=== PATIENT | male | born 1985 | race Caucasian/White ===

== ENCOUNTER 2016-10-06 16:51 | Emergency (ER) | payer BC ==
--- NOTE | 2016-10-06 20:06 | ED ORDER SUMMARY ---
..... Patient: DOMINGO GARCIA OrderSheet [facility] VisitID: [id number] [place] [address] 31y, M Registration Date/Time: 10/06/2016 ORDER SHEET Weight: 145.1 kg (stated) Allergies: Penicillins, Prozac, Ceftin GENERAL ORDERS: MEDICATION ORDERS: Depo-Medrol IM 80 mg (NOW) (18:15 10/06/2016 Charleen Beverly) (Ack 18:18 KPage-Kuchan R.N.) (18:35 KPage-Kuchan R.N.) IV FLUIDS: IV NS : initial bolus none -, then 1000 mL/hr for X1 (NOW) (17:27 10/06/2016 Charleen Beverly) (17:50 KPage-Kuchan R.N.) Toradol IV 30 mg (NOW) (17:28 10/06/2016 Charleen Beverly) (17:50 KPage-Kuchan R.N.) ORDER SHEET NOTES: [Electronically signed by Armani Rene Dr. (20:11 10/06/2016)] [Electronically signed by Patricia Roca R.N. (20:10/06/2016)] [Electronically locked/signed by Patricia Roca R.N. (20:10/06/2016)]
--- NOTE | 2016-10-06 20:06 | ED ORDER SUMMARY ---
..... Patient: DOMINGO GARCIA OrderSheet [facility] VisitID: [id number] [place] [address] 31y, M Registration Date/Time: 10/06/2016 ORDER SHEET Weight: 145.1 kg (stated) Allergies: Penicillins, Prozac, Ceftin GENERAL ORDERS: MEDICATION ORDERS: Depo-Medrol IM 80 mg (NOW) (18:15 10/06/2016 Charleen Beverly) (Ack 18:18 KPage-Kuchan R.N.) (18:35 KPage-Kuchan R.N.) IV FLUIDS: IV NS : initial bolus none -, then 1000 mL/hr for X1 (NOW) (17:27 10/06/2016 Charleen Beverly) (17:50 KPage-Kuchan R.N.) Toradol IV 30 mg (NOW) (17:28 10/06/2016 Charleen Beverly) (17:50 KPage-Kuchan R.N.) ORDER SHEET NOTES: [Electronically signed by Armani Rene Dr. (20:11 10/06/2016)] [Electronically signed by Patricia Roca R.N. (20:10/06/2016)] [Electronically locked/signed by Patricia Roca R.N. (20:10/06/2016)]
--- NOTE | 2016-10-06 20:06 | ED CLINICAL REPORT ---
Clinical Report - Physicians/Mid Levels [facility] [address], [place] [address] 10/06/2016 16:54 Patient: DOMINGO GARCIA Time Seen: 17:15; initial patient contact. Arrived- By private vehicle. Historian- patient. HISTORY OF PRESENT ILLNESS Chief Complaint: SORE THROAT. This started yesterday and is still present. It was gradual in onset. Pain described as moderate. The patient has had a sore throat. Recent medical care: The patient was seen recently in a clinic (Dx'd w/ strept throat, pain not controlled at home and dehydrated.). REVIEW OF SYSTEMS The patient has had fever and a headache. No cough, nausea or vomiting. All systems otherwise negative, except as recorded above. PAST HISTORY Negative. Problems: no known problems. Surgeries: No history of previous surgery. Additional Surgeries: no known surgeries. Allergies: Ceftin. Penicillins. Prozac. SOCIAL HISTORY Smoker - current status unknown. No drug use. ADDITIONAL NOTES The nursing notes have been reviewed. PHYSICAL EXAM Vital Signs: 10/06/2016 17:02 BP: 124/69. HR: 99. RR: 26. O2 saturation: 97%. Temp: 102.3 F. Have been reviewed. Blood pressure normal. Heart rate normal. Tachypneic. Febrile. Oxygen saturation normal. Appearance: Alert. No acute distress. Head: Normal external inspection. ENT: Nose normal. Dry mucous membranes present. Moderate generalized pharyngeal erythema with right tonsillar swelling and exudate and left tonsillar swelling and exudate. No trismus present. Neck: Mild right anterior neck and mild left anterior neck lymphadenopathy present. CVS: Normal heart rate and rhythm. Heart sounds normal. Respiratory: No respiratory distress. Breath sounds normal. Skin: Normal skin color. No rash. Neuro: Oriented X 3. PROGRESS AND PROCEDURES Course of Care: 20:23. Improved w/ 30 mg Toradol, 80 mg Depomedrol, and IV bolus x 2 liters. Disposition: Discharged home in good and improved condition. Condition: good. CLINICAL IMPRESSION Acute streptococcal pharyngitis INSTRUCTIONS Do not work today, tomorrow. Follow-up: Follow up with your doctor in about two days. Call for an appointment. Screening today revealed the patient's blood pressure to be in the pre-hypertensive range. The patient should follow up with a primary care provider for blood pressure management. (Electronically signed by Armani Rene Dr. 10/06/2016 20:11)
--- NOTE | 2016-10-06 20:06 | ED CLINICAL REPORT ---
Clinical Report - Physicians/Mid Levels [facility] [address], [place] [address] 10/06/2016 16:54 Patient: DOMINGO GARCIA Time Seen: 17:15; initial patient contact. Arrived- By private vehicle. Historian- patient. HISTORY OF PRESENT ILLNESS Chief Complaint: SORE THROAT. This started yesterday and is still present. It was gradual in onset. Pain described as moderate. The patient has had a sore throat. Recent medical care: The patient was seen recently in a clinic (Dx'd w/ strept throat, pain not controlled at home and dehydrated.). REVIEW OF SYSTEMS The patient has had fever and a headache. No cough, nausea or vomiting. All systems otherwise negative, except as recorded above. PAST HISTORY Negative. Problems: no known problems. Surgeries: No history of previous surgery. Additional Surgeries: no known surgeries. Allergies: Ceftin. Penicillins. Prozac. SOCIAL HISTORY Smoker - current status unknown. No drug use. ADDITIONAL NOTES The nursing notes have been reviewed. PHYSICAL EXAM Vital Signs: 10/06/2016 17:02 BP: 124/69. HR: 99. RR: 26. O2 saturation: 97%. Temp: 102.3 F. Have been reviewed. Blood pressure normal. Heart rate normal. Tachypneic. Febrile. Oxygen saturation normal. Appearance: Alert. No acute distress. Head: Normal external inspection. ENT: Nose normal. Dry mucous membranes present. Moderate generalized pharyngeal erythema with right tonsillar swelling and exudate and left tonsillar swelling and exudate. No trismus present. Neck: Mild right anterior neck and mild left anterior neck lymphadenopathy present. CVS: Normal heart rate and rhythm. Heart sounds normal. Respiratory: No respiratory distress. Breath sounds normal. Skin: Normal skin color. No rash. Neuro: Oriented X 3. PROGRESS AND PROCEDURES Course of Care: 20:23. Improved w/ 30 mg Toradol, 80 mg Depomedrol, and IV bolus x 2 liters. Disposition: Discharged home in good and improved condition. Condition: good. CLINICAL IMPRESSION Acute streptococcal pharyngitis INSTRUCTIONS Do not work today, tomorrow. Follow-up: Follow up with your doctor in about two days. Call for an appointment. Screening today revealed the patient's blood pressure to be in the pre-hypertensive range. The patient should follow up with a primary care provider for blood pressure management. (Electronically signed by Armani Rene Dr. 10/06/2016 20:11)
--- NOTE | 2016-10-06 20:06 | ED NURSING NOTES ---
Clinical Report - Nurses [facility] [address] [place] [address] 10/06/2016 16:54 Patient: DOMINGO GARCIA TRIAGE Triage time 17:Oct 06 2016. Acuity: LEVEL 3. Chief Complaint: COUGH, FEVER and SORE THROAT and BACK PAIN (pt c/o sore throat that began yesterday, hx of "strep, lots of times"). Alert. No acute distress. (generally ill appearing). SEPSIS SCREEN: Sepsis Screen: positive. Infection suspected/documented. Temperature greater than 38.3 degrees C (101 degrees F), heart rate greater than 90 and respiratory rate greater than 20. Physician notified. --17:17 Allie Nicole R.N. 17:02 10/06/16. BP: 124/69. HR: 99. RR: 26. O2 saturation: 97%. Temp: 102.3 F. Pain level now 9/10. --17:17 Allie Nicole R.N. Weight: 145.1 kg stated. Height/Length: 72 inches Per Patient. BMI: 43.4. --17:17 Allie Nicole R.N. Medications Zithromax Z-Jeronimo Oral. --20:22 Marcelino Alvarado. Vicodin Oral. --20:22 María Alvarado.NEdmundo Medication/allergy information source: the patient and patient's spouse. --17:17 Allie Nicole R.N. Allergies Penicillins. --17:12 Allie Nicole R.N. Prozac. --17:12 Allie Nicole R.N. Ceftin. --17:13 Allie Nicole R.N. History Arrived by private vehicle. Historian: patient and family. Accompanied by mother. This started last night. ( [facility] with + strep, placed on zpak, vicodin and methocarbamol, pt reports pain meds aren't working - last vicodin at 1600 today). He has had chills, fatigue and a headache. Reports muscle aches. ( c/o many areas of pain, ears, eyes, throat and low back). 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 PAST MEDICAL HX: Immunizations: up-to-date. SOCIAL HX: Smoker- current status unknown. No alcohol use or drug use. No infectious disease exposure. ABUSE ASSESSMENT: No report of abuse. SELF HARM ASSESSMENT: A self harm assessment was performed. The patient answered "no" to the question "Have you recently felt down, depressed, or hopeless?", "Have you noticed less interest or pleasure in doing things?", "Do you have thoughts of harming or killing yourself?", "Are you here because you tried to hurt yourself?", "Have you ever tried to hurt yourself before today?", "Have you recently had thoughts about harming or killing others?" and "Do you have any dangerous items in your possession?". FALL RISK ASSESSMENT: Fall risk assessment completed. No fall risk identified. NUTRITIONAL RISK ASSESSMENT: The nutritional risk assessment revealed no deficiencies. FUNCTIONAL ASSESSMENT: Functional assessment: no impairments noted. LEARNING NEEDS ASSESSMENT: The learning needs assessment revealed no barriers. SKIN INTEGRITY ASSESSMENT: Skin integrity risk assessment completed. No skin integrity risk identified. --17:17 Allie Nicole R.N. PROBLEMS: no known problems. ADDITIONAL SURGERIES: no known surgeries. Interventions ID band on patient. Protocol initiated. --17:17 Allie Nicole R.N. PHYSICAL ASSESSMENT GENERAL / NEURO / PSYCH: Alert. Oriented X 4. Appears in no acute distress. HEENT: Pupils equal, round and reactive to light. RESPIRATORY: The patient can speak in full sentences. ( pt speaks full sentences, however voice is quiet, clears oral secretions,). SKIN: Skin is warm and dry. --17:19 Allie Nicole R.N. NURSING PROGRESS NOTES 17:36 10/06/2016 Site #1 started via IV in the right antecubital space with an 20g angiocath; one attempt. Blood drawn: rainbow set. Labeled in the presence of the patient and sent to the lab. Saline lock flushed with 10 mL saline. --17:50 Allie Nicole R.N. 17:38 10/06/2016 Started bag #1 1000 mL IV Fluids IV NS (Saline); at 1000 mL/hr via site #1. Allergies verified and confirmed 5 rights. IV patency established. IV site checked: no pain, redness, or swelling. IV flushed thoroughly pre- and post-medication administration. --17:50 Allie Nicole R.N. 17:40 10/06/2016 Toradol IVP 30 mg given. via site #1. Allergies verified and confirmed 5 rights. IV patency established. IV site checked: no pain, redness, or swelling. IV flushed thoroughly pre- and post-medication administration. IVP given by RN. --17:50 Allie Nicole R.N. 18:33 10/06/16. BP: 125/67. HR: 88. O2 saturation: 98%. Temp: 99.5 F. Pain level now 4/10. --18:35 Allie Nicloe R.N. Head of bed elevated. Reassurance given. Reassessment after medication administered. He is calm and resting quietly. Overall patient status- he states feels better. SKIN: Skin is warm. Call light placed in reach. Side rails up x 2. Bed placed in lowest position. Brakes of bed on. --18:35 Allie Nicole R.N. 18:30 10/06/2016 Depo-Medrol IM 80 mg given. Given in the right gluteus keith. Allergies verified and confirmed 5 rights. --18:35 Allie Nicole R.N. 18:31 10/06/2016 Toradol IVP Response: pain is improving. Symptoms have improved the patient feels better. --18:36 Allie Nicole R.N. ( report received from felicia pt resting in bed). --19:05 Guillermo Alvarado Care transferred and report given (Patricia CALDWELL). --19:07 Allie Nicole R.N. 20:06 10/06/2016 IV Fluids IV NS Discontinued: bag #2 completed upon discharge. Total amount infused: 1000 mL. IV patency established. IV site checked: no pain, redness, or swelling. IV flushed thoroughly. --20:06 Guillermo Alvarado DISPOSITION / DISCHARGE 20:21 10/06/2016 Site #1 removed upon discharge. Catheter intact. Manual pressure and bandage applied. --20:21 Kay Villalobos R.N. Condition at departure: stable. No learning barriers present. Discharge instructions provided and reviewed with the patient and spouse. Patient and spouse verbalized understanding. Written instructions provided in Albanian. The patient was discharged home and accompanied by spouse. He left the Emergency Department ambulatory and via private vehicle. Spouse driving. --20:21 Kay Villalobos R.N. 20:20 10/06/16. BP: 117/63. HR: 85. RR: 15. O2 saturation: 96% on room air. Temp: deferred. Pain level now: 01/18. --20:21 Kay Villalobos R.N. Locked/Released at 10/06/2016 20:23 by Guillermo Alvarado
--- NOTE | 2016-10-06 20:23 | ED DISCHARGE INSTRUCTIONS ---
Patient: DOMINGO GARCIA General Instructions [facility] VisitID: [id number] [place] [address] 31y, M Registration Date/Time: 10/06/2016 Acute streptococcal pharyngitis INSTRUCTIONS Do not work today, tomorrow. Follow-up: Follow up with your doctor in about two days. Call for an appointment. Screening today revealed the patient's blood pressure to be in the pre-hypertensive range. The patient should follow up with a primary care provider for blood pressure management. ADDITIONAL INFORMATION Pharyngitis: Strep [Confirmed] Your test for strep throat was positive. Strep throat is a contagious illness. It is spread by coughing, kissing or by touching others after touching your mouth or nose. Symptoms include throat pain which is worse with swallowing, aching all over, headache and fever. You will be treated with an antibiotic which should make you start to feel better within 1-2 days. Home Care: Rest at home and drink plenty of fluids to avoid dehydration. No school or work for the first two days on antibiotics. You will not be contagious after this time and if you are feeling better, you can return to school or work. Take your antibiotics for a full 10 days, even if you feel better after the first few days of treatment. This is very important to prevent heart or kidney disease that can result as a complication of untreated strep throat infection. Children: Use acetaminophen (Tylenol) for fever, fussiness or discomfort. In infants over six months of age, you may use ibuprofen (Children's Motrin) instead of Tylenol. [NOTE: If your child has chronic liver or kidney disease or ever had a stomach ulcer or GI bleeding, talk with your doctor before using these medicines.] (Aspirin should never be used in anyone under 18 years of age who is ill with a fever. It may cause severe liver damage.)Adults: You may use acetaminophen (Tylenol) or ibuprofen (Motrin, Advil) to control pain or fever, unless another medicine was prescribed for this. [NOTE: If you have chronic liver or kidney disease or ever had a stomach ulcer or GI bleeding, talk with your doctor before using these medicines.] Throat lozenges or sprays (Chloraseptic and others) will reduce pain. Gargling with warm salt water will also reduce throat pain. Dissolve 1/2 teaspoon of salt in 1 glass of warm water. This is especially useful just before meals. Follow Up with your doctor or as directed by our staff if you are not improving over the next week. Get Prompt Medical Attention if any of the following occur: Fever of 100.4F (38C) oral or higher, not better with fever medication New or worsening ear pain, sinus pain or headache Painful lumps in the back of your neck Unable to swallow liquids or open your mouth wide due to throat pain Trouble breathing or noisy breathing Muffled voice New rash You have been given the following additional information: Pharyngitis, Strep (Confirmed) Do not work today, tomorrow. (Electronically signed by Armani Rene Dr. 10/06/2016 20:11)
--- NOTE | 2016-10-06 20:23 | ED MAR SUMMARY ---
..... Medication Administration Record [facility] [address] [place] [address] Patient: DOMINGO GARCIA Visit ID: [id number] 31y, M Weight: 145.1 kg Height/Length: 72 in BMI: 43.4 ALLERGIES: Ceftin, Prozac, Penicillins Start 17:38 10/06/2016 Allie Nicole R.N., Stop 20:06 10/06/2016 Guillermo Alvarado Medication Administered: IV NS (SALINE), Dose: IV Fluids, Rate: 1000 mL/hr, Dispensed: 1000 mL bag, Site: #1 right AC. Medication Ordered: IV NS : initial bolus none -, then 1000 mL/hr for X1 (NOW). Given 17:40 10/06/2016 Allie Nicole R.N. Medication Administered: TORADOL [IVP], Dose: 30 mg IVP, Site: #1 right AC. Medication Ordered: Toradol IV 30 mg (NOW). Given 18:30 10/06/2016 Allie Nicole R.N. Medication Administered: DEPO-MEDROL [IM], Dose: 80 mg IM. Medication Ordered: Depo-Medrol IM 80 mg (NOW).
--- NOTE | 2016-10-06 20:23 | ED MED RECONCILIATION SUMMARY ---
Patient: DOMINGO GARCIA Medication Reconciliation Report [facility] VisitID: [id number] [address] [place] [address] 31y, M Registration Date/Time: 10/06/2016 Weight: 145.1 kg Height/Length: 72 in. BMI: 43.4 ALLERGIES: Ceftin, Penicillins, Prozac The patient's Home Medications are listed below: THE FOLLOWING MEDICATIONS NEED TO BE RECONCILED: Vicodin Oral Zithromax Z-Jeronimo Oral The source(s) of the original Home Medication information: patient patient's spouse The following Medications were given to the patient in the Emergency Department: IV NS IV Fluids bolus 0, then 1000 mL/hr, administered: 10/06/2016 5:38:00 PM Toradol [IVP] IVP 30 mg, administered: 10/06/2016 5:40:00 PM Depo-Medrol [IM] IM 80 mg, administered: 10/06/2016 6:30:00 PM The following Medications were prescribed to the patient: None.
--- NOTE | 2016-10-06 20:23 | ED MED RECONCILIATION SUMMARY ---
Patient: DOMINGO GARCIA Medication Reconciliation Report [facility] VisitID: [id number] [address] [place] [address] 31y, M Registration Date/Time: 10/06/2016 Weight: 145.1 kg Height/Length: 72 in. BMI: 43.4 ALLERGIES: Ceftin, Penicillins, Prozac The patient's Home Medications are listed below: THE FOLLOWING MEDICATIONS NEED TO BE RECONCILED: Vicodin Oral Zithromax Z-Jeronimo Oral The source(s) of the original Home Medication information: patient patient's spouse The following Medications were given to the patient in the Emergency Department: IV NS IV Fluids bolus 0, then 1000 mL/hr, administered: 10/06/2016 5:38:00 PM Toradol [IVP] IVP 30 mg, administered: 10/06/2016 5:40:00 PM Depo-Medrol [IM] IM 80 mg, administered: 10/06/2016 6:30:00 PM The following Medications were prescribed to the patient: None.
--- NOTE | 2016-10-06 20:23 | ED MAR SUMMARY ---
..... Medication Administration Record [facility] [address] [place] [address] Patient: DOMINGO GARCIA Visit ID: [id number] 31y, M Weight: 145.1 kg Height/Length: 72 in BMI: 43.4 ALLERGIES: Ceftin, Prozac, Penicillins Start 17:38 10/06/2016 Allie Nicole R.N., Stop 20:06 10/06/2016 Guillermo Alvarado Medication Administered: IV NS (SALINE), Dose: IV Fluids, Rate: 1000 mL/hr, Dispensed: 1000 mL bag, Site: #1 right AC. Medication Ordered: IV NS : initial bolus none -, then 1000 mL/hr for X1 (NOW). Given 17:40 10/06/2016 Allie Nicole R.N. Medication Administered: TORADOL [IVP], Dose: 30 mg IVP, Site: #1 right AC. Medication Ordered: Toradol IV 30 mg (NOW). Given 18:30 10/06/2016 Allie Nicole R.N. Medication Administered: DEPO-MEDROL [IM], Dose: 80 mg IM. Medication Ordered: Depo-Medrol IM 80 mg (NOW).
== END 2016-10-06 20:20 | disposition home or self-care (01) ==
LOC: ED SRH 16:51
DX: J02.0 Streptococcal pharyngitis (principal); Z88.1 Allergy status to other antibiotic agents; Z88.0 Allergy status to penicillin; Z88.8 Allergy status to other drugs, medicaments and biological substances; F17.200 Nicotine dependence, unspecified, uncomplicated

== ENCOUNTER 2016-10-07 09:05 | Emergency (ER) | payer BC ==
--- NOTE | 2016-10-07 11:23 | DIAGNOSTIC IMAGING REPORT ---
PROCEDURE: CT SOFT TISSUE NECK WITH CONT INDICATION: PAIN, INFECTION TECHNIQUE: 150 ml of Isovue 300 IV contrast was administered. Axial thin-slice CT images were acquired through the neck with coronal and sagittal reformations. If needed, angled axial CT images avoiding dental hardware were acquired. COMPARISON: None. FINDINGS: Enlarged and moderately edematous adenoid pad, palatine tonsils and uvula. The airway between the tonsils is patent and remains midline. No retropharyngeal effusion. No peritonsillar abscess or phlegmon. Parapharyngeal fat planes are normally preserved. Moderate bilateral cervical adenopathy extending caudally to the supraclavicular region. Mild superior mediastinal adenopathy. No soft tissue mass. The glandular structures appear symmetric with normal attenuation and enhancement. The vasculature is patent and normal caliber bilaterally. The visible portions of the sinuses and mastoids are normally aerated. The visible base of the brain is normal. Osseous structures are intact without periostitis or lytic lesion. No significant dental disease. The airway is patent. The lung apices are normally aerated. No suspicious mediastinal mass. IMPRESSION: 1. Findings suggestive of acute tonsillitis without peritonsillar abscess. 2. Reactive bilateral cervical and minimal mediastinal adenopathy. 3. Discussed with Dr. Keys.
--- NOTE | 2016-10-07 13:12 | ED NURSING NOTES ---
Clinical Report - Nurses [facility] [address] [place] [address] 10/07/2016 9:06 Patient: DOMINGO GARCIA TRIAGE Triage time 09:09. Acuity: LEVEL 3. Chief Complaint: SORE THROAT. --09:15 Cheryl Orozco R.N. 09:09 10/07/16. BP: 114/57. HR: 101. RR: 20. O2 saturation: 97%. Temp: 100.8 F. Pain level now: 04/20. --09:15 Cheryl Orozco R.N. Weight: 163.2 kg stated. Height/Length: 72 inches Per Patient. BMI: 48.8. --09:13 Cheryl Orozco R.N. Medications Azithromycin Oral. --09:10 Cheryl Orozco R.N. Muscle Relaxant. --09:10 Cheryl Orozco R.N. Levoxyl 250 mcg daily. --09:11 Cheryl Orozco R.N. Citalopram 20 mg daily. --09:11 Cheryl Orozco R.N. Nexium. --09:11 Cheryl Orozco R.N. Medication/allergy information source: the patient's spouse. --09:15 Cheryl Orozco R.N. Allergies Penicillins. Prozac. --09:10 Cheryl Orozco R.N. History Arrived by private vehicle. Historian: patient and family. Accompanied by family. Onset. (3 days ago). ( Unable to swallow secretions, positive strep yesterday morning at [facility]. Started Zpak yesterday, second dose today. Today unable to swallow bloody secretions. ALSO seen here yesterday.). He has had fever. SOCIAL HX: No alcohol use or drug use. No infectious disease exposure. --09:15 Cheryl Orozco R.N. 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 --09:33 Cheryl Orozco R.N. PROBLEMS: Strep. Depression. Hypothyroidism. --09:12 Cheryl Orozco R.N. Interventions ID band on patient. To treatment room. --09:15 Cheryl Orozco R.N. PHYSICAL ASSESSMENT Ambulatory to room. GENERAL / NEURO / PSYCH: Alert. Oriented X 4. Appears in pain. HEENT: Pharyngeal erythema. Tonsillar exudate present. Trouble handling secretions. Muffled voice. RESPIRATORY: Respirations not labored. SKIN: Skin is diaphoretic. --09:21 Cheryl Orozco R.N. NURSING PROGRESS NOTES Head of bed elevated. Reassurance given. Call light placed in reach. Bed placed in lowest position. Patient ready for evaluation- chart flagged. Patient waiting for evaluation. --09:21 Cheryl Orozco R.N. 09:47 10/07/2016 Started bag #1 1000 mL IV Fluids IV NS (Saline); bolus of 1000 mL wide open then at 1000 mL/hr over 1 hour(s) via site #1 --09:52 Cheryl Orozco R.N. 09:52 10/07/2016 Site #1 started via IV in the right antecubital space with an 20g angiocath; one attempt. Saline lock flushed with 10 mL saline. --09:52 Cheryl Orozco R.N. 09:52 10/07/2016 Started 2 gm of Rocephin (CefTRIAXone Sodium) IVPB in bag #1 50 mL; at 100 mL/hr over 30 minute(s) via site #1 --10:22 Cheryl Orozco R.N. 09:53 10/07/2016 Decadron IVP 20 mg given over 3 minute(s) via site #1. Allergies verified and confirmed 5 rights. IV patency established. IV site checked: no pain, redness, or swelling. IV flushed thoroughly pre- and post-medication administration. --09:53 Cheryl Orozco R.N. 09:53 10/07/2016 Toradol IVP 30 mg given over 2 minute(s) via site #1. --09:53 Cheryl Orozco R.N. 09:54 10/07/2016 Dilaudid (HYDROmorphone HCl PF) IVP 1 mg given over 2 minute(s) via site #1. Allergies verified, confirmed 5 rights and sedative warning given to the patient and patient's family. IV patency established. IV site checked: no pain, redness, or swelling. IV flushed thoroughly pre- and post-medication administration. --09:55 Cheryl Orozco R.N. 10:23 10/07/2016 Rocephin IVPB Discontinued: bag #1 infused. Total amount infused: 50 mL. --10:23 Cheryl Orozco R.N. ( Called to room by apartment maintenance technician for low BP (60s/40s). Pt. BP retaken, now 102/64, which is baseline for this visit. Pt. diaphoretic, but states not dizzy.). --10:49 Cheryl Orozco R.N. ( Out to CT, will come back to room 4). --10:50 Cheryl Orozco R.N. 11:07 10/07/16. ( Place patient in gown). --11:07 Baldev Mora R.N. 12:06 10/07/16. BP: 111/46. HR: 63. O2 saturation: 97%. --12:06 Cheryl Orozco R.N. 11:15 10/07/16. BP: 105/51. HR: 64. RR: 18. O2 saturation: 96%. --12:07 Cheryl Orozco R.N. late entry - 11:15. --12:07 Cheryl Orozco R.N. ( patient states he is feeling better. Declined po fluids when offered. awaiting ENT). --12:45 Cheryl Orozco R.N. 09:59 10/07/2016 IV Fluids IV NS Discontinued: bag #1 infused. Total amount infused: 1000 mL. IV patency established. IV site checked: no pain, redness, or swelling. IV flushed thoroughly. --13:24 Cheryl Orozco R.N. DISPOSITION / DISCHARGE Condition at departure: stable. Discharge instructions provided and reviewed with the patient and spouse. Reviewed warnings. Reviewed medication(s) side effects information. Prescription(s) given to the patient. Reviewed referral to an ear, nose, and throat specialist (legal counsel). Patient and spouse verbalized understanding. Written instructions provided in Khmer. The patient was discharged home and accompanied by spouse. He left the Emergency Department ambulatory and via private vehicle. Spouse driving. --13:23 Cheryl Orozco R.N. 13:22 10/07/16. BP: 101/55. HR: 62. RR: 18. O2 saturation: 97%. Temp: 98.1 F. Pain level now: 12/19. --13:23 Cheryl Orozco R.N. 13:23 10/07/2016 Site #1 removed upon discharge. Pressure dressing applied. --13:23 Cheryl Orozco R.N. Departure time: :23. --13:23 Cheryl Orozco R.N. Locked/Released at 10/07/2016 13:24 by Cheryl Orozco R.N.
--- NOTE | 2016-10-07 13:12 | ED ORDER SUMMARY ---
..... Patient: DOMINGO GARCIA OrderSheet [facility] VisitID: [id number] [address] [place] [address] 31y, M Registration Date/Time: 10/07/2016 ORDER SHEET Weight: 163.2 kg (stated) Allergies: Penicillins, Prozac GENERAL ORDERS: CT Soft Tissue Neck w Cont (No) (N/A) Urgent (10:32 10/07/2016 Pankaj SCHNEIDER) (Ack 10:33 LNations ER Tech1) MEDICATION ORDERS: IV FLUIDS: IV NS : initial bolus 1000 mL (1000 mL/hr), then none - (NOW) (09:35 10/07/2016 Pankaj SCHNEIDER) (Ack 9:37 SStone R.N.) (9:52 SStone R.N.) Dilaudid IV 1 mg (HIGH ALERT MEDICATION, NOW) (09:35 10/07/2016 Pankaj SCHNEIDER) (Ack 9:37 SStone R.N.) (9:55 SStone R.N.) Toradol IV 30 mg (NOW) (09:35 10/07/2016 Pankaj SCHNEIDER) (Ack 9:37 SStone R.N.) (9:53 SStone R.N.) Decadron IV 20 mg (NOW) (09:36 10/07/2016 Pankaj SCHNEIDER) (Ack 9:37 SStone R.N.) (9:53 SStone R.N.) Rocephin IV 2 gm/50mL (NOW) (09:36 10/07/2016 Pankaj SCHNEIDER) (Ack 9:37 SStone R.N.) (10:22 SStone R.N.) ORDER SHEET NOTES: [Electronically signed by Cheryl Orozco R.N. (13:24 10/07/2016)] [Electronically signed by Nargis Keys MD (19:21 10/09/2016)] [Electronically locked/signed by Chreyl Orozco R.N. (13:24 10/07/2016)]
--- NOTE | 2016-10-07 13:12 | ED CLINICAL REPORT ---
Clinical Report - Physicians/Mid Levels [facility] [address] [place] [address] 10/07/2016 9:06 Patient: DOMINGO GARCIA Time Seen: 09:35. Arrived- By private vehicle. Historian- patient. HISTORY OF PRESENT ILLNESS Chief Complaint: SORE THROAT. This started several days ago and is still present and worsening. Pain described as moderate. The patient has had a sore throat. No mouth sores, nasal discharge or congestion, ear pain or toothache. No swollen jaw or face, jaw pain or facial pain. (Pt states he has had strep pharyngitis multiple times as an adult (3-4 x/year throughout adulthood), but has never had a case this bad. states she is concerned, because pt has obstructive sleep apnea already, and when he does briefly fall asleep, he snores and drools, even sitting up, since being ill with strep. Pt states he just started Zithromax yesterday for this. He states the steroids he was given in the ED did seem to help, but he was not given any for at home. Pt states the Vicodin, even 3 tabs at a time, was completely unhelpful for his pain. He states he would just like something to help him sleep, so he can wake up feeling better.). Similar symptoms previously: Many times, milder. Recent medical care: The patient was seen recently at this facility in the emergency department. REVIEW OF SYSTEMS The patient has had low grade fever. No eye discomfort, cough, difficulty breathing, chest pain or nausea. No diarrhea, abdominal pain, difficulty with urination, headache or fainting episodes. No joint pain, skin rash, enlarged lymph nodes or vomiting. All systems otherwise negative, except as recorded above. PAST HISTORY Problems: Strep. Depression. Hypothyroidism. Additional Surgeries: no known surgeries. Medications: Nexium. Citalopram 20 mg daily. Levoxyl 250 mcg daily. Muscle Relaxant. Azithromycin Oral. Allergies: Penicillins. Prozac. SOCIAL HISTORY No alcohol use or drug use. ADDITIONAL NOTES The nursing notes have been reviewed. PHYSICAL EXAM Vital Signs: 10/07/2016 09:09 BP: 114/57. HR: 101. RR: 20. O2 saturation: 97%. Temp: 100.8 F. Pain level now: 04/20. Have been reviewed. Appearance: Alert. No acute distress. (Pt appears moderately uncomfortable.). Head: Normal external inspection. Eyes: Pupils equal, round and reactive to light. Conjunctivae and eyelids normal. ENT: Ears normal. Nose normal. Moderate generalized pharyngeal erythema with right tonsillar swelling and exudate and left tonsillar swelling and exudate. No pharyngeal vesicles or ulcerations. No right tonsillar abscess or left tonsillar abscess. Lips normal. Gums normal. No trismus present. Uvula midline. (Uvula is mildly enlarged.). Neck: Trachea midline. Neck supple. CVS: Normal heart rate and rhythm. Heart sounds normal. Pulses normal. Respiratory: No respiratory distress. Breath sounds normal. Abdomen: Soft. No organomegaly. Skin: Normal skin color. No rash. Normal skin turgor. Extremities: Extremities exhibit normal ROM. Extremities nontender. Neuro: (Grossly oriented and intact.). LABS, X-RAYS, AND EKG CT Neck - Soft Tissue: Vessels normal. Normal epiglottis, sub-glottic space and pre-vertebral space. No mass, soft tissue air or foreign body. No fracture, subluxation or bony lesion. (Tonsillitis, no abscess.). Neck CT (soft tissue) performed with contrast. The study was independently viewed by me, interpreted by the radiologist and contemporaneously by me and discussed with the radiologist. Prior studies were not available for comparison. Pulse Oximetry: 10/07/2016 09:09 O2 saturation: 97%. (FIO2 - room air). Interpretation: normal. PROGRESS AND PROCEDURES Course of Care: PT was treated symptomatically with IV fluids, Toradol, Decadron, and Dilaudid, and was given a dose of Rocephin in the ED. CT neck showed tonsillitis, but no other concerning findings. D/w pt the follow-up plan with ENT. Pt reported feeling better, and I did d/w him that I feel he likely just needs more time on abx. Pt understands he may return to the ED at any time, should his sx worsen. Discussed case with on-call health care provider, (Michael/ENT). Reviewed test results and need for additional work-up. Agreed upon treatment plan. Health care provider will see patient in office. Patient and spouse counseled in person regarding the patient's stable condition, test results, diagnosis and need for follow-up. Concerns were addressed. Old medical records reviewed. Disposition: Discharged. Condition: stable and improved. CLINICAL IMPRESSION Acute streptococcal pharyngitis INSTRUCTIONS Drink plenty of fluids. (Your CT scan looks good--you have tonsillitis, but no abscess or spread of infection to anywhere else. Your case has been discussed with Dr. Rodriguez (ENT specialist), who states that he or one of his colleagues will be happy to see you within the week. Please call their office to set up an appointment. Please continue your antibiotics, as directed, until they are gone. Please also take the steroids prescribed to help with the pain and inflammation. Take the pain medication to help with the pain, as well (do not take with Vicodin). If you experience difficulty breathing that seems to be worsening, please return to the emergency dept without delay.). Warnings: Further evaluation is necessary. It is very important to follow up with a physician. SEDATIVE MEDICATION: You were given sedative medication during your visit. Do not drive or operate dangerous machinery for 8 hours. GENERAL WARNINGS: Return or contact your physician immediately if your condition worsens or changes unexpectedly, if not improving as expected, or if other problems arise. Your Current Medications: CONTINUE TAKING THE FOLLOWING MEDICATIONS: Azithromycin Oral. Citalopram 20 mg daily*. Levoxyl 250 mcg daily*. Muscle Relaxant*. Nexium*. Prescription Medications: Oxycodone 15 mg tablets: take 1 orally every 6 hours as needed for pain. Dispense fifteen (15). No refill. Prednisone 20 mg tablets: take 3 tablets every day for 2 days ; then take 2 tablets every day for 2 days ; then take 1 tablet every day for 2 days. Dispense sufficient quantity. No refills. Understanding of the discharge instructions verbalized by patient and family. Follow-up with: Art Rodriguez MD, ENT, , [facility] [address], [id number]; Art Mae MD, ENT, , [facility], [address] [place] [id number]; Miles Royal MD, ENT, , [facility], [address] [place] [address], [place], [address] Follow up. Call for the next available appointment. Reason for referral: Follow up ER visit within 1 week. (Electronically signed by Nargis Keys MD 10/09/2016 19:21)
--- NOTE | 2016-10-07 13:12 | ED ORDER SUMMARY ---
..... Patient: DOMINGO GARCIA OrderSheet [facility] VisitID: [id number] [address] [place] [address] 31y, M Registration Date/Time: 10/07/2016 ORDER SHEET Weight: 163.2 kg (stated) Allergies: Penicillins, Prozac GENERAL ORDERS: CT Soft Tissue Neck w Cont (No) (N/A) Urgent (10:32 10/07/2016 Pankaj SCHNEIDER) (Ack 10:33 LNations ER Tech1) MEDICATION ORDERS: IV FLUIDS: IV NS : initial bolus 1000 mL (1000 mL/hr), then none - (NOW) (09:35 10/07/2016 Pankaj SCHNEIDER) (Ack 9:37 SStone R.N.) (9:52 SStone R.N.) Dilaudid IV 1 mg (HIGH ALERT MEDICATION, NOW) (09:35 10/07/2016 Pankaj SCHNEIDER) (Ack 9:37 SStone R.N.) (9:55 SStone R.N.) Toradol IV 30 mg (NOW) (09:35 10/07/2016 Pankaj SCHNEIDER) (Ack 9:37 SStone R.N.) (9:53 SStone R.N.) Decadron IV 20 mg (NOW) (09:36 10/07/2016 Pankaj SCHNEIDER) (Ack 9:37 SStone R.N.) (9:53 SStone R.N.) Rocephin IV 2 gm/50mL (NOW) (09:36 10/07/2016 Pankaj SCHNEIDER) (Ack 9:37 SStone R.N.) (10:22 SStone R.N.) ORDER SHEET NOTES: [Electronically signed by Cheryl Orozco R.N. (13:24 10/07/2016)] [Electronically signed by Nargis Keys MD (19:21 10/09/2016)] [Electronically locked/signed by Cheryl Orozco R.N. (13:24 10/07/2016)]
--- NOTE | 2016-10-07 13:12 | ED NURSING NOTES ---
Clinical Report - Nurses [facility] [address] [place] [address] 10/07/2016 9:06 Patient: DOMINGO GARCIA TRIAGE Triage time 09:09. Acuity: LEVEL 3. Chief Complaint: SORE THROAT. --09:15 Cheryl Orozco R.N. 09:09 10/07/16. BP: 114/57. HR: 101. RR: 20. O2 saturation: 97%. Temp: 100.8 F. Pain level now: 04/20. --09:15 Cheryl Orozco R.N. Weight: 163.2 kg stated. Height/Length: 72 inches Per Patient. BMI: 48.8. --09:13 Cheryl Orozco R.N. Medications Azithromycin Oral. --09:10 Cheryl Orozco R.N. Muscle Relaxant. --09:10 Cheryl Orozco R.N. Levoxyl 250 mcg daily. --09:11 Cheryl Orozco R.N. Citalopram 20 mg daily. --09:11 Cheryl Orozco R.N. Nexium. --09:11 Cheryl Orozco R.N. Medication/allergy information source: the patient's spouse. --09:15 Cheryl Orozco R.N. Allergies Penicillins. Prozac. --09:10 Cheryl Orozco R.N. History Arrived by private vehicle. Historian: patient and family. Accompanied by family. Onset. (3 days ago). ( Unable to swallow secretions, positive strep yesterday morning at [facility]. Started Zpak yesterday, second dose today. Today unable to swallow bloody secretions. ALSO seen here yesterday.). He has had fever. SOCIAL HX: No alcohol use or drug use. No infectious disease exposure. --09:15 Cheryl Orozco R.N. 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 --09:33 Cheryl Orozco R.N. PROBLEMS: Strep. Depression. Hypothyroidism. --09:12 Cheryl Orozco R.N. Interventions ID band on patient. To treatment room. --09:15 Cheryl Orozco R.N. PHYSICAL ASSESSMENT Ambulatory to room. GENERAL / NEURO / PSYCH: Alert. Oriented X 4. Appears in pain. HEENT: Pharyngeal erythema. Tonsillar exudate present. Trouble handling secretions. Muffled voice. RESPIRATORY: Respirations not labored. SKIN: Skin is diaphoretic. --09:21 Cheryl Orozco R.N. NURSING PROGRESS NOTES Head of bed elevated. Reassurance given. Call light placed in reach. Bed placed in lowest position. Patient ready for evaluation- chart flagged. Patient waiting for evaluation. --09:21 Cheryl Orozco R.N. 09:47 10/07/2016 Started bag #1 1000 mL IV Fluids IV NS (Saline); bolus of 1000 mL wide open then at 1000 mL/hr over 1 hour(s) via site #1 --09:52 Cheryl Orozco R.N. 09:52 10/07/2016 Site #1 started via IV in the right antecubital space with an 20g angiocath; one attempt. Saline lock flushed with 10 mL saline. --09:52 Cheryl Orozco R.N. 09:52 10/07/2016 Started 2 gm of Rocephin (CefTRIAXone Sodium) IVPB in bag #1 50 mL; at 100 mL/hr over 30 minute(s) via site #1 --10:22 Cheryl Orozco R.N. 09:53 10/07/2016 Decadron IVP 20 mg given over 3 minute(s) via site #1. Allergies verified and confirmed 5 rights. IV patency established. IV site checked: no pain, redness, or swelling. IV flushed thoroughly pre- and post-medication administration. --09:53 Cheryl Orozco R.N. 09:53 10/07/2016 Toradol IVP 30 mg given over 2 minute(s) via site #1. --09:53 Cheryl Orozco R.N. 09:54 10/07/2016 Dilaudid (HYDROmorphone HCl PF) IVP 1 mg given over 2 minute(s) via site #1. Allergies verified, confirmed 5 rights and sedative warning given to the patient and patient's family. IV patency established. IV site checked: no pain, redness, or swelling. IV flushed thoroughly pre- and post-medication administration. --09:55 Cheryl Orozco R.N. 10:23 10/07/2016 Rocephin IVPB Discontinued: bag #1 infused. Total amount infused: 50 mL. --10:23 Cheryl Orozco R.N. ( Called to room by commercial kitchen service technician for low BP (60s/40s). Pt. BP retaken, now 102/64, which is baseline for this visit. Pt. diaphoretic, but states not dizzy.). --10:49 Cheryl Orozco R.N. ( Out to CT, will come back to room 4). --10:50 Cheryl Orozco R.N. 11:07 10/07/16. ( Place patient in gown). --11:07 Baldev Mora R.N. 12:06 10/07/16. BP: 111/46. HR: 63. O2 saturation: 97%. --12:06 Cheryl Orozco R.N. 11:15 10/07/16. BP: 105/51. HR: 64. RR: 18. O2 saturation: 96%. --12:07 Cheryl Orozco R.N. late entry - 11:15. --12:07 Cheryl Orozco R.N. ( patient states he is feeling better. Declined po fluids when offered. awaiting ENT). --12:45 Cheryl Orozco R.N. 09:59 10/07/2016 IV Fluids IV NS Discontinued: bag #1 infused. Total amount infused: 1000 mL. IV patency established. IV site checked: no pain, redness, or swelling. IV flushed thoroughly. --13:24 Cheryl Orozco R.N. DISPOSITION / DISCHARGE Condition at departure: stable. Discharge instructions provided and reviewed with the patient and spouse. Reviewed warnings. Reviewed medication(s) side effects information. Prescription(s) given to the patient. Reviewed referral to an ear, nose, and throat specialist (algebraist). Patient and spouse verbalized understanding. Written instructions provided in Spanish. The patient was discharged home and accompanied by spouse. He left the Emergency Department ambulatory and via private vehicle. Spouse driving. --13:23 Cheryl Orozco R.N. 13:22 10/07/16. BP: 101/55. HR: 62. RR: 18. O2 saturation: 97%. Temp: 98.1 F. Pain level now: 12/19. --13:23 Cheryl Orozco R.N. 13:23 10/07/2016 Site #1 removed upon discharge. Pressure dressing applied. --13:23 Cheryl Orozco R.N. Departure time: :23. --13:23 Cheryl Orozco R.N. Locked/Released at 10/07/2016 13:24 by Cheryl Orozco R.N.
--- NOTE | 2016-10-07 13:12 | ED CLINICAL REPORT ---
Clinical Report - Physicians/Mid Levels [facility] [address] [place] [address] 10/07/2016 9:06 Patient: DOMINGO GARCIA Time Seen: 09:35. Arrived- By private vehicle. Historian- patient. HISTORY OF PRESENT ILLNESS Chief Complaint: SORE THROAT. This started several days ago and is still present and worsening. Pain described as moderate. The patient has had a sore throat. No mouth sores, nasal discharge or congestion, ear pain or toothache. No swollen jaw or face, jaw pain or facial pain. (Pt states he has had strep pharyngitis multiple times as an adult (3-4 x/year throughout adulthood), but has never had a case this bad. states she is concerned, because pt has obstructive sleep apnea already, and when he does briefly fall asleep, he snores and drools, even sitting up, since being ill with strep. Pt states he just started Zithromax yesterday for this. He states the steroids he was given in the ED did seem to help, but he was not given any for at home. Pt states the Vicodin, even 3 tabs at a time, was completely unhelpful for his pain. He states he would just like something to help him sleep, so he can wake up feeling better.). Similar symptoms previously: Many times, milder. Recent medical care: The patient was seen recently at this facility in the emergency department. REVIEW OF SYSTEMS The patient has had low grade fever. No eye discomfort, cough, difficulty breathing, chest pain or nausea. No diarrhea, abdominal pain, difficulty with urination, headache or fainting episodes. No joint pain, skin rash, enlarged lymph nodes or vomiting. All systems otherwise negative, except as recorded above. PAST HISTORY Problems: Strep. Depression. Hypothyroidism. Additional Surgeries: no known surgeries. Medications: Nexium. Citalopram 20 mg daily. Levoxyl 250 mcg daily. Muscle Relaxant. Azithromycin Oral. Allergies: Penicillins. Prozac. SOCIAL HISTORY No alcohol use or drug use. ADDITIONAL NOTES The nursing notes have been reviewed. PHYSICAL EXAM Vital Signs: 10/07/2016 09:09 BP: 114/57. HR: 101. RR: 20. O2 saturation: 97%. Temp: 100.8 F. Pain level now: 04/20. Have been reviewed. Appearance: Alert. No acute distress. (Pt appears moderately uncomfortable.). Head: Normal external inspection. Eyes: Pupils equal, round and reactive to light. Conjunctivae and eyelids normal. ENT: Ears normal. Nose normal. Moderate generalized pharyngeal erythema with right tonsillar swelling and exudate and left tonsillar swelling and exudate. No pharyngeal vesicles or ulcerations. No right tonsillar abscess or left tonsillar abscess. Lips normal. Gums normal. No trismus present. Uvula midline. (Uvula is mildly enlarged.). Neck: Trachea midline. Neck supple. CVS: Normal heart rate and rhythm. Heart sounds normal. Pulses normal. Respiratory: No respiratory distress. Breath sounds normal. Abdomen: Soft. No organomegaly. Skin: Normal skin color. No rash. Normal skin turgor. Extremities: Extremities exhibit normal ROM. Extremities nontender. Neuro: (Grossly oriented and intact.). LABS, X-RAYS, AND EKG CT Neck - Soft Tissue: Vessels normal. Normal epiglottis, sub-glottic space and pre-vertebral space. No mass, soft tissue air or foreign body. No fracture, subluxation or bony lesion. (Tonsillitis, no abscess.). Neck CT (soft tissue) performed with contrast. The study was independently viewed by me, interpreted by the radiologist and contemporaneously by me and discussed with the radiologist. Prior studies were not available for comparison. Pulse Oximetry: 10/07/2016 09:09 O2 saturation: 97%. (FIO2 - room air). Interpretation: normal. PROGRESS AND PROCEDURES Course of Care: PT was treated symptomatically with IV fluids, Toradol, Decadron, and Dilaudid, and was given a dose of Rocephin in the ED. CT neck showed tonsillitis, but no other concerning findings. D/w pt the follow-up plan with ENT. Pt reported feeling better, and I did d/w him that I feel he likely just needs more time on abx. Pt understands he may return to the ED at any time, should his sx worsen. Discussed case with on-call health care provider, (Michael/ENT). Reviewed test results and need for additional work-up. Agreed upon treatment plan. Health care provider will see patient in office. Patient and spouse counseled in person regarding the patient's stable condition, test results, diagnosis and need for follow-up. Concerns were addressed. Old medical records reviewed. Disposition: Discharged. Condition: stable and improved. CLINICAL IMPRESSION Acute streptococcal pharyngitis INSTRUCTIONS Drink plenty of fluids. (Your CT scan looks good--you have tonsillitis, but no abscess or spread of infection to anywhere else. Your case has been discussed with Dr. Rodriguez (ENT specialist), who states that he or one of his colleagues will be happy to see you within the week. Please call their office to set up an appointment. Please continue your antibiotics, as directed, until they are gone. Please also take the steroids prescribed to help with the pain and inflammation. Take the pain medication to help with the pain, as well (do not take with Vicodin). If you experience difficulty breathing that seems to be worsening, please return to the emergency dept without delay.). Warnings: Further evaluation is necessary. It is very important to follow up with a physician. SEDATIVE MEDICATION: You were given sedative medication during your visit. Do not drive or operate dangerous machinery for 8 hours. GENERAL WARNINGS: Return or contact your physician immediately if your condition worsens or changes unexpectedly, if not improving as expected, or if other problems arise. Your Current Medications: CONTINUE TAKING THE FOLLOWING MEDICATIONS: Azithromycin Oral. Citalopram 20 mg daily*. Levoxyl 250 mcg daily*. Muscle Relaxant*. Nexium*. Prescription Medications: Oxycodone 15 mg tablets: take 1 orally every 6 hours as needed for pain. Dispense fifteen (15). No refill. Prednisone 20 mg tablets: take 3 tablets every day for 2 days ; then take 2 tablets every day for 2 days ; then take 1 tablet every day for 2 days. Dispense sufficient quantity. No refills. Understanding of the discharge instructions verbalized by patient and family. Follow-up with: Art Rodriguez MD, ENT, , [facility] [address], [address]; Art Mae MD, ENT, , [facility], [address] [place] [address]; Miles Royal MD, ENT, , [facility], [address] [place] [address], [place], [address] Follow up. Call for the next available appointment. Reason for referral: Follow up ER visit within 1 week. (Electronically signed by Nargis Keys MD 10/09/2016 19:21)
--- NOTE | 2016-10-09 19:21 | ED MAR SUMMARY ---
..... Medication Administration Record Formerly [facility] [address] [place] [address] Patient: DOMINGO GARCIA Visit ID: [id number] 31y, M Weight: 163.2 kg Height/Length: 72 in BMI: 48.8 ALLERGIES: Penicillins, Prozac Start 09:47 10/07/2016 Cheryl Orozco R.N., Stop 09:59 10/07/2016 Cheryl Orozco R.N. Medication Administered: IV NS (SALINE), Dose: IV Fluids over 1 hour(s), Rate: 1000 mL/hr, Bolus: 1000 mL wide open, Dispensed: 1000 mL bag, Site: #1. Medication Ordered: IV NS : initial bolus 1000 mL (1000 mL/hr), then none - (NOW). Start 09:52 10/07/2016 Cheryl Orozco R.N., Stop 10:23 10/07/2016 Cheryl Orozco R.N. Medication Administered: ROCEPHIN [IVPB] (CEFTRIAXONE SODIUM), Dose: 2 gm IVPB over 30 minute(s), Rate: 100 mL/hr, Dispensed: 50 mL bag, Site: #1 right AC. Medication Ordered: Rocephin IV 2 gm/50mL (NOW). Given 09:53 10/07/2016 Cheryl Orozco R.N. Medication Administered: TORADOL [IVP], Dose: 30 mg IVP over 2 minute(s), Site: #1 right AC. Medication Ordered: Toradol IV 30 mg (NOW). Given 09:53 10/07/2016 Cheryl Orozco R.N. Medication Administered: DECADRON [IVP], Dose: 20 mg IVP over 3 minute(s), Site: #1 right AC. Medication Ordered: Decadron IV 20 mg (NOW). Given 09:54 10/07/2016 Cheryl Orozco R.N. Medication Administered: DILAUDID [IVP] (HYDROMORPHONE HCL PF), Dose: 1 mg IVP over 2 minute(s), Site: #1 right AC. Medication Ordered: Dilaudid IV 1 mg (HIGH ALERT MEDICATION, NOW).
--- NOTE | 2016-10-09 19:21 | ED DISCHARGE INSTRUCTIONS ---
Patient: DOMINGO GARCIA General Instructions [facility] VisitID: [id number] [place] [address] 31y, M Registration Date/Time: 10/07/2016 Acute streptococcal pharyngitis INSTRUCTIONS Drink plenty of fluids. (Your CT scan looks good--you have tonsillitis, but no abscess or spread of infection to anywhere else. Your case has been discussed with Dr. Rodriguez (ENT specialist), who states that he or one of his colleagues will be happy to see you within the week. Please call their office to set up an appointment. Please continue your antibiotics, as directed, until they are gone. Please also take the steroids prescribed to help with the pain and inflammation. Take the pain medication to help with the pain, as well (do not take with Vicodin). If you experience difficulty breathing that seems to be worsening, please return to the emergency dept without delay.). Warnings: Further evaluation is necessary. It is very important to follow up with a physician. SEDATIVE MEDICATION: You were given sedative medication during your visit. Do not drive or operate dangerous machinery for 8 hours. GENERAL WARNINGS: Return or contact your physician immediately if your condition worsens or changes unexpectedly, if not improving as expected, or if other problems arise. Your Current Medications: CONTINUE TAKING THE FOLLOWING MEDICATIONS: Azithromycin Oral. Citalopram 20 mg daily*. Levoxyl 250 mcg daily*. Muscle Relaxant*. Nexium*. Prescription Medications: Oxycodone 15 mg tablets: take 1 orally every 6 hours as needed for pain. Dispense fifteen (15). No refill. Prednisone 20 mg tablets: take 3 tablets every day for 2 days ; then take 2 tablets every day for 2 days ; then take 1 tablet every day for 2 days. Dispense sufficient quantity. No refills. Understanding of the discharge instructions verbalized by patient and family. Follow-up with: Art Rodriguez MD, ENT, , [facility] [address] [address]; Art Mae MD, ENT, , [facility], [facility] [address] [address]; Miles Royal MD, ENT, , [facility], [address] [place] [address], [place], [address] Follow up. Call for the next available appointment. Reason for referral: Follow up ER visit within 1 week. ADDITIONAL INFORMATION Pharyngitis: Strep [Confirmed] Your test for strep throat was positive. Strep throat is a contagious illness. It is spread by coughing, kissing or by touching others after touching your mouth or nose. Symptoms include throat pain which is worse with swallowing, aching all over, headache and fever. You will be treated with an antibiotic which should make you start to feel better within 1-2 days. Home Care: Rest at home and drink plenty of fluids to avoid dehydration. No school or work for the first two days on antibiotics. You will not be contagious after this time and if you are feeling better, you can return to school or work. Take your antibiotics for a full 10 days, even if you feel better after the first few days of treatment. This is very important to prevent heart or kidney disease that can result as a complication of untreated strep throat infection. Children: Use acetaminophen (Tylenol) for fever, fussiness or discomfort. In infants over six months of age, you may use ibuprofen (Children's Motrin) instead of Tylenol. [NOTE: If your child has chronic liver or kidney disease or ever had a stomach ulcer or GI bleeding, talk with your doctor before using these medicines.] (Aspirin should never be used in anyone under 18 years of age who is ill with a fever. It may cause severe liver damage.)Adults: You may use acetaminophen (Tylenol) or ibuprofen (Motrin, Advil) to control pain or fever, unless another medicine was prescribed for this. [NOTE: If you have chronic liver or kidney disease or ever had a stomach ulcer or GI bleeding, talk with your doctor before using these medicines.] Throat lozenges or sprays (Chloraseptic and others) will reduce pain. Gargling with warm salt water will also reduce throat pain. Dissolve 1/2 teaspoon of salt in 1 glass of warm water. This is especially useful just before meals. Follow Up with your doctor or as directed by our staff if you are not improving over the next week. Get Prompt Medical Attention if any of the following occur: Fever of 100.4F (38C) oral or higher, not better with fever medication New or worsening ear pain, sinus pain or headache Painful lumps in the back of your neck Unable to swallow liquids or open your mouth wide due to throat pain Trouble breathing or noisy breathing Muffled voice New rash You have been given the following additional information: Pharyngitis, Strep (Confirmed) (Electronically signed by Nargis Keys MD 10/09/2016 19:21)
--- NOTE | 2016-10-09 19:21 | ED DISCHARGE INSTRUCTIONS ---
Patient: DOMINGO GARCIA General Instructions [facility] VisitID: [id number] [place] [address] 31y, M Registration Date/Time: 10/07/2016 Acute streptococcal pharyngitis INSTRUCTIONS Drink plenty of fluids. (Your CT scan looks good--you have tonsillitis, but no abscess or spread of infection to anywhere else. Your case has been discussed with Dr. Rodriguez (ENT specialist), who states that he or one of his colleagues will be happy to see you within the week. Please call their office to set up an appointment. Please continue your antibiotics, as directed, until they are gone. Please also take the steroids prescribed to help with the pain and inflammation. Take the pain medication to help with the pain, as well (do not take with Vicodin). If you experience difficulty breathing that seems to be worsening, please return to the emergency dept without delay.). Warnings: Further evaluation is necessary. It is very important to follow up with a physician. SEDATIVE MEDICATION: You were given sedative medication during your visit. Do not drive or operate dangerous machinery for 8 hours. GENERAL WARNINGS: Return or contact your physician immediately if your condition worsens or changes unexpectedly, if not improving as expected, or if other problems arise. Your Current Medications: CONTINUE TAKING THE FOLLOWING MEDICATIONS: Azithromycin Oral. Citalopram 20 mg daily*. Levoxyl 250 mcg daily*. Muscle Relaxant*. Nexium*. Prescription Medications: Oxycodone 15 mg tablets: take 1 orally every 6 hours as needed for pain. Dispense fifteen (15). No refill. Prednisone 20 mg tablets: take 3 tablets every day for 2 days ; then take 2 tablets every day for 2 days ; then take 1 tablet every day for 2 days. Dispense sufficient quantity. No refills. Understanding of the discharge instructions verbalized by patient and family. Follow-up with: Art Rodriguez MD, ENT, , [facility] [address] [address]; Art Mae MD, ENT, , [facility], [facility] [address] [address]; Miles Royal MD, ENT, , [facility], [address] [place] [address], [place], [address] Follow up. Call for the next available appointment. Reason for referral: Follow up ER visit within 1 week. ADDITIONAL INFORMATION Pharyngitis: Strep [Confirmed] Your test for strep throat was positive. Strep throat is a contagious illness. It is spread by coughing, kissing or by touching others after touching your mouth or nose. Symptoms include throat pain which is worse with swallowing, aching all over, headache and fever. You will be treated with an antibiotic which should make you start to feel better within 1-2 days. Home Care: Rest at home and drink plenty of fluids to avoid dehydration. No school or work for the first two days on antibiotics. You will not be contagious after this time and if you are feeling better, you can return to school or work. Take your antibiotics for a full 10 days, even if you feel better after the first few days of treatment. This is very important to prevent heart or kidney disease that can result as a complication of untreated strep throat infection. Children: Use acetaminophen (Tylenol) for fever, fussiness or discomfort. In infants over six months of age, you may use ibuprofen (Children's Motrin) instead of Tylenol. [NOTE: If your child has chronic liver or kidney disease or ever had a stomach ulcer or GI bleeding, talk with your doctor before using these medicines.] (Aspirin should never be used in anyone under 18 years of age who is ill with a fever. It may cause severe liver damage.)Adults: You may use acetaminophen (Tylenol) or ibuprofen (Motrin, Advil) to control pain or fever, unless another medicine was prescribed for this. [NOTE: If you have chronic liver or kidney disease or ever had a stomach ulcer or GI bleeding, talk with your doctor before using these medicines.] Throat lozenges or sprays (Chloraseptic and others) will reduce pain. Gargling with warm salt water will also reduce throat pain. Dissolve 1/2 teaspoon of salt in 1 glass of warm water. This is especially useful just before meals. Follow Up with your doctor or as directed by our staff if you are not improving over the next week. Get Prompt Medical Attention if any of the following occur: Fever of 100.4F (38C) oral or higher, not better with fever medication New or worsening ear pain, sinus pain or headache Painful lumps in the back of your neck Unable to swallow liquids or open your mouth wide due to throat pain Trouble breathing or noisy breathing Muffled voice New rash You have been given the following additional information: Pharyngitis, Strep (Confirmed) (Electronically signed by Nargis Keys MD 10/09/2016 19:21)
--- NOTE | 2016-10-09 19:21 | ED MAR SUMMARY ---
..... Medication Administration Record [facility] [address] [place] [address] Patient: DOMINGO GARCIA Visit ID: [id number] 31y, M Weight: 163.2 kg Height/Length: 72 in BMI: 48.8 ALLERGIES: Penicillins, Prozac Start 09:47 10/07/2016 Cheryl Orozco R.N., Stop 09:59 10/07/2016 Cheryl Orozco R.N. Medication Administered: IV NS (SALINE), Dose: IV Fluids over 1 hour(s), Rate: 1000 mL/hr, Bolus: 1000 mL wide open, Dispensed: 1000 mL bag, Site: #1. Medication Ordered: IV NS : initial bolus 1000 mL (1000 mL/hr), then none - (NOW). Start 09:52 10/07/2016 Cheryl Orozco R.N., Stop 10:23 10/07/2016 Cheryl Orozco R.N. Medication Administered: ROCEPHIN [IVPB] (CEFTRIAXONE SODIUM), Dose: 2 gm IVPB over 30 minute(s), Rate: 100 mL/hr, Dispensed: 50 mL bag, Site: #1 right AC. Medication Ordered: Rocephin IV 2 gm/50mL (NOW). Given 09:53 10/07/2016 Cheryl Orozco R.N. Medication Administered: TORADOL [IVP], Dose: 30 mg IVP over 2 minute(s), Site: #1 right AC. Medication Ordered: Toradol IV 30 mg (NOW). Given 09:53 10/07/2016 Cheryl Orozco R.N. Medication Administered: DECADRON [IVP], Dose: 20 mg IVP over 3 minute(s), Site: #1 right AC. Medication Ordered: Decadron IV 20 mg (NOW). Given 09:54 10/07/2016 Cheryl Orozco R.N. Medication Administered: DILAUDID [IVP] (HYDROMORPHONE HCL PF), Dose: 1 mg IVP over 2 minute(s), Site: #1 right AC. Medication Ordered: Dilaudid IV 1 mg (HIGH ALERT MEDICATION, NOW).
--- NOTE | 2016-10-09 19:21 | ED MED RECONCILIATION SUMMARY ---
Patient: DOMINGO GARCIA Medication Reconciliation Report [facility] VisitID: [id number] [address] [place] [address] 31y, M Registration Date/Time: 10/07/2016 Weight: 163.2 kg Height/Length: 72 in. BMI: 48.8 ALLERGIES: Penicillins, Prozac The patient's Home Medications are listed below: CONTINUE TAKING THE FOLLOWING MEDICATIONS: Azithromycin Oral Citalopram 20 mg daily Levoxyl 250 mcg daily Muscle Relaxant Nexium The source(s) of the original Home Medication information: patient's spouse The following Medications were given to the patient in the Emergency Department: IV NS IV Fluids bolus 1000 mL wide open, then 1000 mL/hr, administered: 10/07/2016 9:47:00 AM Decadron [IVP] IVP 20 mg, administered: 10/07/2016 9:53:00 AM Toradol [IVP] IVP 30 mg, administered: 10/07/2016 9:53:00 AM Dilaudid [IVP] IVP 1 mg, administered: 10/07/2016 9:54:00 AM Rocephin [IVPB] IVPB bolus 0, then 2 gm 100 mL/hr, administered: 10/07/2016 9:52:00 AM The following Medications were prescribed to the patient: Oxycodone 15 mg tablets: take 1 orally every 6 hours as needed for pain. Dispense fifteen (15). No refill. -- Nargis Keys MD Prednisone 20 mg tablets: take 3 tablets every day for 2 days ; then take 2 tablets every day for 2 days ; then take 1 tablet every day for 2 days. Dispense sufficient quantity. No refills. -- Nargis Keys MD
--- NOTE | 2016-10-09 19:21 | ED MED RECONCILIATION SUMMARY ---
Patient: DOMINGO GARCIA Medication Reconciliation Report [facility] VisitID: [id number] [address] [place] [address] 31y, M Registration Date/Time: 10/07/2016 Weight: 163.2 kg Height/Length: 72 in. BMI: 48.8 ALLERGIES: Penicillins, Prozac The patient's Home Medications are listed below: CONTINUE TAKING THE FOLLOWING MEDICATIONS: Azithromycin Oral Citalopram 20 mg daily Levoxyl 250 mcg daily Muscle Relaxant Nexium The source(s) of the original Home Medication information: patient's spouse The following Medications were given to the patient in the Emergency Department: IV NS IV Fluids bolus 1000 mL wide open, then 1000 mL/hr, administered: 10/07/2016 9:47:00 AM Decadron [IVP] IVP 20 mg, administered: 10/07/2016 9:53:00 AM Toradol [IVP] IVP 30 mg, administered: 10/07/2016 9:53:00 AM Dilaudid [IVP] IVP 1 mg, administered: 10/07/2016 9:54:00 AM Rocephin [IVPB] IVPB bolus 0, then 2 gm 100 mL/hr, administered: 10/07/2016 9:52:00 AM The following Medications were prescribed to the patient: Oxycodone 15 mg tablets: take 1 orally every 6 hours as needed for pain. Dispense fifteen (15). No refill. -- Nargis Keys MD Prednisone 20 mg tablets: take 3 tablets every day for 2 days ; then take 2 tablets every day for 2 days ; then take 1 tablet every day for 2 days. Dispense sufficient quantity. No refills. -- Nargis Keys MD
== END 2016-10-07 13:35 | disposition home or self-care (01) ==
LOC: ED SRH 09:05
DX: J02.0 Streptococcal pharyngitis (principal); Z88.0 Allergy status to penicillin